=== PATIENT | male | born 1940 | race Caucasian/White ===

== ENCOUNTER → 2016-12-11 | Outpatient (CLI) | payer OTHER | END | disposition home or self-care (01) | LOC: PCVCCLINIC 13:46 | PROVIDERS: ATTEND Internal Medicine Cardiovascular Disease | DX: I48.92 Unspecified atrial flutter (principal); I42.9 Cardiomyopathy, unspecified; I47.2 Ventricular tachycardia; I10 Essential (primary) hypertension; Z79.82 Long term (current) use of aspirin; Z79.899 Other long term (current) drug therapy | CPT/HCPCS: 93005; G0463 ==

== ENCOUNTER → 2017-06-14 | Outpatient (CLI) | payer OTHER ==
--- NOTE | 2017-06-14 09:58 | PCVCIMAG ---
APPROVED REPORT Study performed: 06/14/2017 08:57:42 EXAM: Comprehensive 2D, Doppler, and color-flow Echocardiogram Patient Location: Echo lab Status: routine BSA: 2.22 HR: 60 bpmBP: 130/66 mmHg Rhythm: NSR Other Information Study Quality: Adequate Indications Pacemaker Non-ischemic Cardiomyopathy, ICD, Paroxysmal A Fib 2D Dimensions LVEF(%): 18.50 (>50%) IVSd: 10.70 (7-11mm) LVDd: 48.68 mm PWd: 11.40 (7-11mm) LVDs: 44.61 (25-40mm) Left Atrium: 45.67 (27-40mm) Aortic Root: 30.24 mm LV Single Plane 4CH: 45.62 % LV Single Plane 2CH: 46.56 %[place]'s LVEF: 46.09 % Biplane EF: 45.8 % Volumes Left Atrial Volume (Systole) Single Plane 4CH: 84.69 mLSingle Plane 2CH: 85.44 mL LA ESV Index: 39.00 mL/m2 Aortic Valve AoV Peak Toro.: 1.46 m/s AO Peak Gr.: 8.56 mmHgLVOT Max P.01 mmHg LVOT Max V: 0.71 m/s AI Vmax: 4.39 m/s AI [place]: 2.91 m/s2 AI PHT: 437.56 ms Mitral Valve E/A Ratio: 1.5 MV Decel. Time: 263.46 ms MV E Max Toro.: 0.80 m/s MV A Toro.: 0.53 m/s IVRT: 76.12 ms Pulmonary Valve PV Peak Toro.: 0.98 m/sPV Peak Gr.: 3.86 mmHg Pulmonary Vein P Vein S: 0.40 m/sP Vein A: 0.30 m/s P Vein D: 0.61 m/sP Vein A Dur.: 114.2 msec P Vein S/D Ratio: 0.66 Tricuspid Valve TR Peak Toro.: 2.61 m/s TR Peak Gr.: 27.20 mmHg Left Ventricle The left ventricle is normal size. There is normal LV segmental wall motion. There is normal left ventricular wall thickness. Left ventricular systolic function is mildly decreased. LVEF is 45%. Grade II - pseudonormal filling dynamics. Right Ventricle The right ventricle is normal size. The right ventricular systolic function is normal. Pacemaker lead is present in the right ventricle. Atria Left atrium is moderately dilated. The right atrium size is normal. Pacemaker lead is present in the right atrium. Aortic Valve The aortic valve is normal in structure. Mild to moderate aortic regurgitation. There is no aortic valvular stenosis. Mitral Valve The mitral valve is normal in structure. Moderate mitral regurgitation. No evidence of mitral valve stenosis. Tricuspid Valve The tricuspid valve is normal in structure. Mild tricuspid regurgitation with PAP of 34 mmHg. Pulmonic Valve The pulmonary valve is normal in structure. There is no pulmonic valvular regurgitation. Great Vessels The aortic root is normal in size. IVC is normal in size and collapses with >50% inspiration Pericardium There is no pericardial effusion. <Conclusion> The left ventricle is normal size. Left ventricular systolic function is mildly decreased. The right ventricle is normal size. Left atrium is moderately dilated. Mild to moderate aortic regurgitation. Moderate mitral regurgitation. Mild tricuspid regurgitation with PAP of 34 mmHg.
== END | disposition home or self-care (01) ==
LOC: PCVCIMAG 08:50
PROVIDERS: ATTEND Internal Medicine Cardiovascular Disease
DX: I08.3 Combined rheumatic disorders of mitral, aortic and tricuspid valves (principal); I42.8 Other cardiomyopathies; I48.0 Paroxysmal atrial fibrillation; I10 Essential (primary) hypertension; I47.2 Ventricular tachycardia; Z95.810 Presence of automatic (implantable) cardiac defibrillator; Z79.82 Long term (current) use of aspirin; Z79.899 Other long term (current) drug therapy
CPT/HCPCS: 93005; 93306; G0463

== ENCOUNTER → 2017-12-24 | Outpatient (CLI) | payer OTHER | END | disposition home or self-care (01) | LOC: PCVCCLINIC 10:40 | DX: I10 Essential (primary) hypertension (principal); I42.9 Cardiomyopathy, unspecified; I48.92 Unspecified atrial flutter; I47.2 Ventricular tachycardia; Z88.8 Allergy status to other drugs, medicaments and biological substances; Z79.82 Long term (current) use of aspirin; Z79.899 Other long term (current) drug therapy | CPT/HCPCS: 93005; G0463 ==

== ENCOUNTER → 2018-06-25 | Outpatient (CLI) | payer OTHER ==
--- NOTE | 2018-06-25 11:00 | PCVCIMAG ---
APPROVED REPORT Study performed: 06/25/2018 09:48:32 EXAM: Comprehensive 2D, Doppler, and color-flow Echocardiogram Patient Location: Echo lab Room #: [id number]: routine BSA: 2.20 HR: 68 bpmBP: 132/58 mmHg Rhythm: NSR Other Information Study Quality: Good Risk Factors: Cardiac Risk Factors: HTN Indications Atrial Fibrillation Pacemaker Cardiomyopathy Hypertension/HDD NICM,HX VT, ICD 2D Dimensions IVSd: 8.01 (7-11mm)LVOT Diam: 20.14 (18-24mm) LVDd: 60.64 mm PWd: 8.22 (7-11mm)Ascending Ao: 31.43 (22-36mm) LVDs: 48.02 (25-40mm) Left Atrium: 36.47 (27-40mm) Aortic Root: 23.51 mm LV Single Plane 4CH: 41.04 % LV Single Plane 2CH: 42.45 % Biplane EF: 40.4 % Volumes Left Atrial Volume (Systole) Single Plane 4CH: 61.67 mLSingle Plane 2CH: 57.52 mL Biplane LA Volume: 66.00 mLLA ESV Index: 30.00 mL/m2 Aortic Valve AoV Peak Toro.: 1.33 m/s AO Peak Gr.: 7.10 mmHgLVOT Max P.22 mmHg LVOT Max V: 1.03 m/s ALMA Vmax: 2.46 cm2 AI Vmax: 3.79 m/s AI [place]: 1.87 m/s2 AI PHT: 601.02 ms Mitral Valve E/A Ratio: 1.2 MV Decel. Time: 131.02 ms MV E Max Toro.: 0.93 m/s MV A Toro.: 0.75 m/s MV PHT: 38.00 ms IVRT: 93.43 ms TDI E/Lateral E': 10.33E/Medial E': 23.25 Medial E' Toro.: 0.04 m/s Lateral E' Toro.: 0.09 m/s Pulmonary Valve PV Peak Toro.: 1.24 m/sPV Peak Gr.: 6.16 mmHg Pulmonary Vein P Vein S: 0.38 m/sP Vein A: 0.22 m/s P Vein D: 0.49 m/sP Vein A Dur.: 110.7 msec P Vein S/D Ratio: 0.78 Tricuspid Valve TR Peak Toro.: 2.43 m/s TR Peak Gr.: 23.58 mmHg TV Vmax: 0.79 m/sPA Pressure: 31.00 mmHg Left Ventricle Left ventricle is mildly dilated. There is normal LV segmental wall motion. There is normal left ventricular wall thickness. Left ventricular systolic function is mild to moderately decreased. LVEF is 40-45%. Grade II - pseudonormal filling dynamics. Right Ventricle The right ventricle is normal size. The right ventricular systolic function is normal. Atria The left atrium size is normal. The right atrium size is normal. Aortic Valve Aortic valve is trileaflet. Mild aortic valve sclerosis. Mild to moderate aortic regurgitation. There is no aortic valvular stenosis. Mitral Valve The mitral valve is normal in structure. Moderate mitral regurgitation No evidence of mitral valve stenosis. Tricuspid Valve The tricuspid valve is normal in structure. Mild to moderate tricuspid regurgitation with a PA pressure of 31 mmHg. Pulmonic Valve The pulmonary valve is normal in structure. Trace to mild pulmonic regurgitation. Great Vessels The aortic root is normal in size. The ascending aorta is normal in size. Aortic arch is normal in caliber. IVC is normal in size and collapses >50% with inspiration. Pericardium There is no pericardial effusion. There is no pleural effusion. <Conclusion> Left ventricle is mildly dilated. Left ventricular systolic function is mild to moderately decreased. Grade II - pseudonormal filling dynamics. The right ventricle is normal size. The left atrium size is normal. Mild to moderate aortic regurgitation. Moderate mitral regurgitation Mild to moderate tricuspid regurgitation with a PA pressure of 31 mmHg.
== END | disposition home or self-care (01) ==
LOC: PCVCIMAG 09:52
PROVIDERS: ATTEND Internal Medicine Cardiovascular Disease
DX: I08.3 Combined rheumatic disorders of mitral, aortic and tricuspid valves (principal); I25.119 Atherosclerotic heart disease of native coronary artery with unspecified angina pectoris; I42.9 Cardiomyopathy, unspecified; I48.92 Unspecified atrial flutter; I10 Essential (primary) hypertension; I47.2 Ventricular tachycardia; I48.91 Unspecified atrial fibrillation; Z95.0 Presence of cardiac pacemaker
CPT/HCPCS: 93306

== ENCOUNTER → 2018-12-24 | Outpatient (CLI) | payer OTHER | END | disposition home or self-care (01) | LOC: PCVCCLINIC 13:00 | PROVIDERS: ATTEND Internal Medicine Cardiovascular Disease | DX: I25.10 Atherosclerotic heart disease of native coronary artery without angina pectoris (principal); I48.92 Unspecified atrial flutter; I42.9 Cardiomyopathy, unspecified; R07.9 Chest pain, unspecified; I11.0 Hypertensive heart disease with heart failure; I50.9 Heart failure, unspecified; Z88.8 Allergy status to other drugs, medicaments and biological substances; Z79.899 Other long term (current) drug therapy | CPT/HCPCS: 93005; 93283; G0463 ==

== ENCOUNTER → 2019-06-30 | Outpatient (CLI) | payer OTHER | END | disposition home or self-care (01) | LOC: PCVCIMAG 13:45 | PROVIDERS: ATTEND Internal Medicine Cardiovascular Disease | DX: I11.0 Hypertensive heart disease with heart failure (principal); I50.9 Heart failure, unspecified; I08.3 Combined rheumatic disorders of mitral, aortic and tricuspid valves; I44.0 Atrioventricular block, first degree; I25.10 Atherosclerotic heart disease of native coronary artery without angina pectoris; I25.5 Ischemic cardiomyopathy; E78.00 Pure hypercholesterolemia, unspecified; G47.33 Obstructive sleep apnea (adult) (pediatric); Z88.8 Allergy status to other drugs, medicaments and biological substances; Z79.899 Other long term (current) drug therapy; Z95.810 Presence of automatic (implantable) cardiac defibrillator; Z80.9 Family history of malignant neoplasm, unspecified; Z80.3 Family history of malignant neoplasm of breast | CPT/HCPCS: 93306 ==